=== PATIENT | male | born 2005 | race Caucasian/White ===

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

== ENCOUNTER 2024-02-14 15:15 | Emergency (ER) | payer BC, OTHER ==
[2024-02-14 15:26] VITALS: RESP 18; TEMP 98.2
[2024-02-14] MEDS: DIPH,PERTUS(ACELL)TETVAC-LF 0.5 ML VIAL IM ONE (16:31)
[2024-02-14] MEDS: LIDOCAINE 1% INJ 10MG/ML (20 ML MDV) SQ ONE (16:33)
--- NOTE | 2024-02-14 17:03 | ED ---
General Adult HPI - General Chief complaint: Wound/Laceration Stated complaint: L Thumb Lac Time Seen by Provider: 02/14/24 15:24 Source: patient, RN notes reviewed Mode of arrival: ambulatory Limitations: no limitations - History of Present Illness Initial comments: 18-year-old male presents to the emergency department for evaluation of left thumb laceration. Patient states that he was working with a circular saw when he cut the extensor surface of his left thumb. He notes full range of motion at the thumb. He is unsure of his last tetanus vaccination date. He states that looking at the blood made him nauseous. Denies any other injury. - Related Data Previous Rx's Medication Instructions Recorded polyethylene glycoL 3350 [Miralax] 17 gm PO DAILY #14 packet 03/30/16 Ibuprofen [Motrin] 600 mg PO Q6HR PRN #20 tab 02/26/20 Clindamycin [Cleocin] 150 mg PO Q6H #28 cap 09/11/20 Mupirocin 2% Oint [Bactroban 2% 1 applic TOPICAL TID #30 gm 09/11/20 Oint] Allergies Allergy/AdvReac Type Severity Reaction Status Date / Time No Known Allergies Allergy Verified 02/14/24 15:20 Review of Systems ROS Statement: Those systems with pertinent positive or pertinent negative responses have been documented in the HPI. ROS Other: All systems not noted in ROS Statement are negative. Past Medical History Past Medical History: No Reported History History of Any Multi-Drug Resistant Organisms: None Reported Past Surgical History: Appendectomy Past Psychological History: No Psychological Hx Reported Smoking Status: Vaper Past Alcohol Use History: None Reported Past Drug Use History: Marijuana General Exam Limitations: no limitations General appearance: alert, in no apparent distress Head exam: Present: atraumatic, normocephalic, normal inspection Eye exam: Present: normal appearance, PERRL, EOMI. Absent: scleral icterus, conjunctival injection, periorbital swelling ENT exam: Present: normal exam, mucous membranes moist Respiratory exam: Present: normal lung sounds bilaterally. Absent: respiratory distress, wheezes, rales, rhonchi, stridor Cardiovascular Exam: Present: regular rate, normal rhythm, normal heart sounds. Absent: systolic murmur, diastolic murmur, rubs, gallop, clicks Extremities exam: Present: full ROM, normal capillary refill, other. Absent: tenderness, pedal edema, joint swelling, calf tenderness Neurological exam: Present: alert, oriented X3 Psychiatric exam: Present: normal affect, normal mood Skin exam: Present: warm, dry, normal color, other (Laceration to the extensor surface of the left thumb). Absent: intact Course Vital Signs 02/14/24 02/14/24 15:17 17:14 Temperature 98.2 F Pulse Rate 100 62 Respiratory 18 18 Rate Blood Pressure 113/71 102/59 O2 Sat by Pulse 99 97 Oximetry Procedures - Laceration Laceration #1 Consent Obtained: verbal consent Indication: laceration Site: hand Size (cm): 2 Description: linear Depth: simple, single layer Anesthetic Used: lidocaine 1% Anesthesia Technique: nerve block Pre-repair: wound explored, irrigated extensively Type of Sutures: other Size of Sutures: 5-0 Number of Sutures: 5 Technique: simple, interrupted Patient Tolerated Procedure: well, no complications Medical Decision Making - Medical Decision Making Was pt. sent in by a medical professional or institution (, PA, TURN OUT, urgent care, hospital, or custodial...) When possible be specific @ -No Did you speak to anyone other than the patient for history (EMS, parent, family, police, friend...)? What history was obtained from this source @ -No Did you review nursing and triage notes (agree or disagree)? Why? @ -I reviewed and agree with nursing and triage notes Were old charts reviewed (outside hosp., previous admission, EMS record, old EKG, old radiological studies, urgent care reports/EKG's, custodial records)? Report findings @ -No old charts were reviewed Differential Diagnosis (chest pain, altered mental status, abdominal pain women, abdominal pain men, vaginal bleeding, weakness, fever, dyspnea, syncope, headache, dizziness, GI bleed, back pain, seizure, CVA, palpatations, mental health, musculoskeletal)? @ -Laceration, abrasion, fracture, this list is not all inclusive EKG interpreted by me (3pts min.). @ -None X-rays interpreted by me (1pt min.). @ -X-ray of the left thumb interpreted by me shows no evidence of acute foreign body or fracture CT interpreted by me (1pt min.). @ -None done U/S interpreted by me (1pt. min.). @ -None done What testing was considered but not performed or refused? (CT, X-rays, U/S, labs)? Why? @ -None What meds were considered but not given or refused? Why? @ -None Did you discuss the management of the patient with other professionals (professionals i.e. , PA, TURN OUT, lab, RT, psych nurse, social worker clinical, hvac specialist, teacher, probation officer, case making machine operator)? Give summary @ -No Was smoking cessation discussed for >3mins.? @ -No Was critical care preformed (if so, how long)? @ -No Were there social determinants of health that impacted care today? How? (Homelessness, low income, unemployed, alcoholism, drug addiction, transportation, low edu. Level, literacy, decrease access to med. care, skilled nursing, rehab)? @ -No Was there de-escalation of care discussed even if they declined (Discuss DNR or withdrawal of care, Hospice)? DNR status @ -No What co-morbidities impacted this encounter? (DM, HTN, Smoking, COPD, CAD, Cancer, CVA, ARF, Chemo, Hep., AIDS, mental health diagnosis, sleep apnea, morbid obesity)? @ -None Was patient admitted / discharged? Hospital course, mention meds given and route, prescriptions, significant lab abnormalities, going to OR and other pertinent info. @ -Discharged. Patient presented to the emergency department for evaluation of laceration to his left thumb. Laceration was irrigated x-rays were applied. Patient underwent x-ray which shows no evidence of acute fracture or foreign body. Advised patient on suture removal time and wound care. Patient understanding agreeable with discharge plan. Patient stable at time of discharge. Case discussed with Dr. Carr Undiagnosed new problem with uncertain prognosis? @ -No Drug Therapy requiring intensive monitoring for toxicity (Heparin, Nitro, Insulin, Cardizem)? @ -No Were any procedures done? @ -No Diagnosis/symptom? @ -Laceration Acute, or Chronic, or Acute on Chronic? @ -Acute Uncomplicated (without systemic symptoms) or Complicated (systemic symptoms)? @ -Uncomplicated Side effects of treatment? @ -No Exacerbation, Progression, or Severe Exacerbation? @ -No Poses a threat to life or bodily function? How? (Chest pain, [place], [place], pneumonia, PE, COPD, DKA, ARF, appy, cholecystitis, CVA, Diverticulitis, Homicidal, Suicidal, threat to staff... and all critical care pts) @ -No Disposition Clinical Impression: Laceration Disposition: HOME SELF-CARE Condition: Stable Instructions (If sedation given, give patient instructions): Care For Your Stitches (ED) Additional Instructions: Please follow up for stitch removal in around 7 days. Keep wound clean and dry. Be on the lookout for signs of infection including warmth, redness, drainage. Is patient prescribed a controlled substance at d/c from ED?: No Referrals: None,Stated [Primary Care Provider] - 1-2 days
[2024-02-14 17:40] VITALS: BP 102/59; PULSE 62
--- NOTE | 2024-02-14 20:12 | XR ---
EXAMINATION TYPE: XR finger LT DATE OF EXAM: 02/14/2024 4:02 PM CLINICAL INDICATION:Male, 18 years old with history of cut with saw; [facility] COMPARISON: None TECHNIQUE: 3 views left thumb FINDINGS: There appears to be a small soft tissue defect along the dorsal aspect of the thumb at the level of t he proximal phalanx which may relate to the current trauma. No radiopaque foreign body is seen. Underlying osseous structures show no acute abnormality. IMPRESSION: As above.
== END 2024-02-14 17:17 | disposition home or self-care (01) ==
LOC: EC 15:15
DX: S61.012A Laceration without foreign body of left thumb without damage to nail, initial encounter (principal); F17.290 Nicotine dependence, other tobacco product, uncomplicated; F12.90 Cannabis use, unspecified, uncomplicated; Z23 Encounter for immunization; W31.2XXA Contact with powered woodworking and forming machines, initial encounter
CPT/HCPCS: 73140; 90715; 99283; 90471; 12001; J2001